=== PATIENT | male | born 1985 | race Caucasian/White ===

== ENCOUNTER 2016-06-20 14:13 | Emergency (ER) | payer MEDICAID, OTHER ==
[2016-06-20] MEDS ORDERED: TETRACAINE HCL 0.5% OPH SOLN 2 ML OS ONE (14:40)
--- NOTE | 2016-06-20 14:41 | ER Document Report ---
ED Medical Screen (RME) - General Chief Complaint: Eye Injury Stated Complaint: EYE PROBLEM Notes: Patient is a 31-year-old male who presents with feeling like a wood splinter is in his left eye. He was drilling he surveillance camera into a piece of wood and noticed a splinter bounced off the inside of his safety glasses and went into his eye. Denies blurry vision, tearing, redness or right eye pain. I have greeted and performed a rapid initial assessment of this patient. A comprehensive ED assessment and evaluation of the patient, analysis of test results and completion of the medical decision making process will be conducted by additional ED providers. TRAVEL OUTSIDE OF THE [place] IN LAST 30 DAYS: No - Related Data Allergies/Adverse Reactions: No Known Allergies Allergy (Verified 09/20/15 03:26) Past Medical History Pulmonary Medical History: Reports: Hx COPD Neurological Medical History: Reports: Hx Migraine Renal/ Medical History: Denies: Hx Peritoneal Dialysis Musculoskeltal Medical History: Reports Hx Musculoskeletal Deformity, Reports Hx Musculoskeletal Trauma Psychiatric Medical History: Reports: Hx Anxiety, Hx Depression - Immunizations Immunizations up to date: Yes Hx Diphtheria, Pertussis, Tetanus Vaccination: Yes Physical Exam - Vital signs Vitals: Temp Pulse Resp BP Pulse Ox 97.4 F 65 16 114/53 L 100 06/20/16 14:18 06/20/16 14:18 06/20/16 14:18 06/20/16 14:18 06/20/16 14:18 Course - Vital Signs Vital signs: Temp Pulse Resp BP Pulse Ox 97.4 F 65 16 114/53 L 100 06/20/16 14:18 06/20/16 14:18 06/20/16 14:18 06/20/16 14:18 06/20/16 14:18
--- NOTE | 2016-06-20 16:00 | ER Document Report ---
HPI - HPI Patient complains to provider of: piece of wood flew in eye Onset: Just prior to arrival Onset/Duration: Sudden Quality of pain: Sharp Pain Level: 5 Context: 31 yo methadone pt non contact lens weared male was drilling into wood and states piece of wood flew into left eye. He states that he could see it in his eye and his eye is irritated. Wears glasses but does not have them for the visual acuity accuracy. No eyeball pain, he states it feels supreficial. Associated Symptoms: None Exacerbated by: Denies Relieved by: Denies Similar symptoms previously: No Recently seen / treated by doctor: No - ROS ROS below otherwise negative: Yes Systems Reviewed and Negative: Yes All other systems reviewed and negative - DERM Skin Color: Normal Past Medical History - General Information source: Patient - Social History Smoking Status: Current Every Day Smoker Frequency of alcohol use: None Drug Abuse: None Lives with: Family Family History: Reviewed & Not Pertinent Patient has suicidal ideation: No Patient has homicidal ideation: No Pulmonary Medical History: Reports: Hx COPD Neurological Medical History: Reports: Hx Migraine Renal/ Medical History: Denies: Hx Peritoneal Dialysis Musculoskeltal Medical History: Reports Hx Musculoskeletal Deformity, Reports Hx Musculoskeletal Trauma Psychiatric Medical History: Reports: Hx Anxiety, Hx Depression Surgical Hx: Negative - Immunizations Immunizations up to date: Yes Hx Diphtheria, Pertussis, Tetanus Vaccination: Yes Vertical Provider Document - CONSTITUTIONAL Agree With Documented VS: Yes - somnolent Exam Limitations: No Limitations General Appearance: No Apparent Distress - INFECTION CONTROL TRAVEL OUTSIDE OF THE [place] IN LAST 30 DAYS: No - HEENT HEENT: Atraumatic, PERRLA. negative: Conjuctival Injection Notes: no fb, no anterior chamber bleed, no fluorescein uptake - NECK Neck: Supple - RESPIRATORY O2 Sat by Pulse Oximetry: 100 - NEURO Level of Consciousness: Awake, Sedated - DERM Integumentary: Warm, Dry, No Rash Course - Re-evaluation Re-evalutation: 06/21/16 21:46 visual acutiy 20/100 both eyes without his glasses - Vital Signs Vital signs: Temp Pulse Resp BP Pulse Ox 97.4 F 65 16 114/53 L 100 06/20/16 14:18 06/20/16 14:18 06/20/16 14:18 06/20/16 14:18 06/20/16 14:18 Discharge - Discharge Clinical Impression: Irritation of left eye Condition: Good Disposition: HOME, SELF-CARE Instructions: Eyedrop Use ([facility]), Ketorolac Tromethamine Eye Drops ([facility]) Additional Instructions: return to er if eye worsens with any swelling, red, drainage. 1 drop of the acular eye drops every 6 hours for eye pain Referrals: TERRENCE ARTEAGA MD [ACTIVE STAFF] - Follow up as needed
[2016-06-20] MEDS ORDERED: KETOROLAC TROMETHAMINE 0.45% 4 DROP/0.4 ML DROPERETTE OS ONE (16:29)
[2016-06-20 17:01] VITALS: BP 104/51
== END 2016-06-20 16:59 | disposition home or self-care (01) ==
LOC: ER 14:13
DX: H57.8 Other specified disorders of eye and adnexa (principal); F17.200 Nicotine dependence, unspecified, uncomplicated; J44.9 Chronic obstructive pulmonary disease, unspecified
CPT/HCPCS: 99283; J3490

== ENCOUNTER 2016-09-26 12:15 | Emergency (ER) | payer SELFPAY ==
[2016-09-26] MEDS ORDERED: MORPHINE SULFATE 10 MG/ML INJ IV ONE (12:25)
[2016-09-26] MEDS ORDERED: NORMAL SALINE 1000 ML 1,000 ML IV PRN (12:25)
[2016-09-26] MEDS ORDERED: ONDANSETRON HCL INJ/PF 4 MG/2 ML SDV IV ONE (12:25)
[2016-09-26] MEDS ORDERED: KETOROLAC TROMETHAMINE INJ/PF 30 MG/1 ML SDV IV ONE (12:27)
--- NOTE | 2016-09-26 12:49 | ER Document Report ---
ED Medical Screen (RME) - General Chief Complaint: Abdominal Pain Stated Complaint: ABDOMINAL PAIN Time Seen by Provider: 09/26/16 12:24 Notes: 31-year-old male who presents with sudden onset of severe left lower quadrant pain. He states that less than 1 hour ago. It is severe and constant. He states he is nauseous but has not vomited. He denies any testicle pain or problems with urination or bowel movements. No fevers. He denies any previous abdominal surgeries. He states that he has no blood in his urine. No fevers. He denies chronic medical conditions. He denies any previous abdominal surgeries. TRAVEL OUTSIDE OF THE [place] IN LAST 30 DAYS: No - Related Data Allergies/Adverse Reactions: No Known Allergies Allergy (Verified 09/20/15 03:26) Past Medical History Pulmonary Medical History: Reports: Hx COPD Neurological Medical History: Reports: Hx Migraine Renal/ Medical History: Denies: Hx Peritoneal Dialysis Musculoskeltal Medical History: Reports Hx Musculoskeletal Deformity, Reports Hx Musculoskeletal Trauma Psychiatric Medical History: Reports: Hx Anxiety, Hx Depression - Immunizations Immunizations up to date: Yes Hx Diphtheria, Pertussis, Tetanus Vaccination: Yes Physical Exam - Vital signs Vitals: Temp Pulse Resp BP Pulse Ox 97.5 F 107 H 22 H 139/97 H 98 09/26/16 12:19 09/26/16 12:19 09/26/16 12:19 09/26/16 12:19 09/26/16 12:19 Course - Vital Signs Vital signs: Temp Pulse Resp BP Pulse Ox 97.5 F 107 H 22 H 139/97 H 98 09/26/16 12:19 09/26/16 12:19 09/26/16 12:19 09/26/16 12:19 09/26/16 12:19
[2016-09-26 13:08] LABS: ABSOLUTE BASOPHILS # (AUTO) 0.1 10^3/uL (0.0-0.2); ABSOLUTE EOSINOPHILS # (AUTO) 0.3 10^3/uL (0.0-0.6); ABSOLUTE LYMPHOCYTES (AUTO) 2.6 10^3/uL (0.5-4.7); ABSOLUTE MONOCYTES (AUTO) 0.6 10^3/uL (0.1-1.4); ABSOLUTE NEUT (AUTO) 2.3 10^3/uL (1.7-8.2); BASOPHILS % (AUTO) 2.1 % (0-2); EOSINOPHILS % (AUTO) 4.7 % (0-6); HEMATOCRIT 39.1 % (37.9-51.0); HGB HCT DIFFERENCE -0.1; LYMPHOCYTES % (AUTO) 44.5 % (13-45); MEAN CORPUSCULAR HEMOGLOBIN 28.6 pg (27.0-33.4); MEAN CORPUSCULAR HGB CONC 33.2 g/dL (32.0-36.0); MEAN CORPUSCULAR VOLUME 86 fl (80-97); MONOCYTES % (AUTO) 9.6 % (3-13); RED BLOOD COUNT 4.54 10^6/uL (4.35-5.55); RED CELL DISTRIBUTION WIDTH 14.4 % (11.5-14.0); SEGMENTED NEUTROPHILS % (AUTO) 39.1 % (42-78); WHITE BLOOD COUNT 5.8 10^3/uL (4.0-10.5)
[2016-09-26 13:17] LABS: APPEARANCE,URINE SLIGHTLY-CLOUDY; BILIRUBIN,URINE NEGATIVE (NEGATIVE); GLUCOSE, URINE NEGATIVE (NEGATIVE); KETONES,URINE NEGATIVE (NEGATIVE); LEUKOCYTE ESTERASE,URINE NEGATIVE (NEGATIVE); NITRITE,URINE NEGATIVE (NEGATIVE); PROTEIN,URINE NEGATIVE (NEGATIVE); URINE SPECIFIC GRAVITY 1.012; UROBILINOGEN,URINE NEGATIVE mg/dL (<2.0)
[2016-09-26 13:32] LABS: ALANINE AMINOTRANSFERASE 111 U/L (21-72); ALBUMIN 4.9 g/dL (3.5-5.0); ALKALINE PHOSPHATASE 71 U/L (38-126); ANION GAP 17 (5-19); ASPARTATE AMINO TRANSFERASE 60 U/L (17-59); BILIRUBIN,DIRECT 0.3 mg/dL (0.0-0.4); BILIRUBIN,TOTAL 0.5 mg/dL (0.2-1.3); BLOOD UREA NITROGEN 23 mg/dL (7-20); CALCIUM 9.8 mg/dL (8.4-10.2); CARBON DIOXIDE 25 mmol/L (22-30); CHLORIDE 100 mmol/L (98-107); CREATININE RESULT 0.89 mg/dL (0.52-1.25); GLUCOSE 82 mg/dL (75-110); POTASSIUM 4.9 mmol/L (3.6-5.0); SODIUM 141.9 mmol/L (137-145); TOTAL PROTEIN 8.3 g/dL (6.3-8.2)
--- NOTE | 2016-09-26 13:44 | RADIOLOGY REPORT (SQ) ---
EXAM DESCRIPTION: CT ABD/PELVIS NO ORAL OR IV COMPLETED DATE/TIME: 09/26/2016 1:12 pm REASON FOR STUDY: left lq pain COMPARISON: July 2010 TECHNIQUE: CT scan of the abdomen and pelvis performed without intravenous or oral contrast. Images reviewed with lung, soft tissue, and bone windows. Reconstructed coronal and sagittal MPR images revi ewed. All images stored on PACS. All CT scanners at this facility use dose modulation, iterative reconstruction, and/or weight based d osing when appropriate to reduce radiation dose to as low as reasonably achievable (ALARA). [facility]: Dose Right [facility]: CareDose [facility]: Dose Right [facility]: Teradose 4D [facility]: Smart MyWebzz RADIATION DOSE: Up-to-date CT equipment and radiation dose reduction techniques were employed. CTDIv ol: 4.8 mGy. DLP: 247 mGy-cm.mGy. LIMITATIONS: None. FINDINGS: LOWER CHEST: No significant findings. No nodules or infiltrates. NON-CONTRASTED LIVER, SPLEEN, ADRENALS: Evaluation limited by lack of IV contrast. No identified sign ificant masses. PANCREAS: No masses. No peripancreatic inflammatory changes. GALLBLADDER: No identified stones by CT criteria. No inflammatory changes to suggest cholecystitis. RIGHT KIDNEY AND URETER: No suspicious masses. Assessment limited by lack of IV contrast. No signif icant calcifications. No hydronephrosis or hydroureter. LEFT KIDNEY AND URETER: No suspicious masses. Assessment limited by lack of IV contrast. No signifi cant calcifications. No hydronephrosis or hydroureter. AORTA AND RETROPERITONEUM: No aneurysm. No retroperitoneal masses or adenopathy. BOWEL AND PERITONEAL CAVITY: No obvious masses or inflammatory changes. No free fluid. There are mul tiple prominent fluid filled small bowel loops without definite evidence for obstruction APPENDIX: Not identified PELVIS, BLADDER, AND ABDOMINAL WALL:No abnormal masses. No free fluid. Bladder normal. BONES: No significant findings. OTHER: No other significant finding. IMPRESSION: NO SIGNIFICANT OR ACUTE PROCESS IN THE ABDOMEN OR PELVIS. TECHNICAL DOCUMENTATION: JOB ID: [id number] Quality ID # [id number]: Final reports with documentation of one or more dose reduction techniques (e.g., Au tomated exposure control, adjustment of the mA and/or kV according to patient size, use of iterative reconstruction technique) 2010 [employer]- All Rights Reserved
--- NOTE | 2016-09-26 14:02 | ER Document Report ---
ED GI/ - General Chief Complaint: Abdominal Pain Stated Complaint: ABDOMINAL PAIN Time Seen by Provider: 09/26/16 12:24 Information source: Patient Notes: 31-year-old male who presents today with the acute onset of some periumbilical and "penis" pain he states nausea without vomiting, fevers, flank pain, penile discharge, testicular pain or swelling. He states the pain is subsided. He denies pain to this region previously. He denies any new sexual partners. He denies any obvious aggravating or relieving factors. TRAVEL OUTSIDE OF THE [place] IN LAST 30 DAYS: No - HPI Patient complains to provider of: Abdominal pain Onset: Other - See above Timing/Duration: Sudden Quality of pain: Achy, Stabbing Severity at maximum: Severe Severity in ED: None Pain Level: Denies Location: Other - See above Sexual history: Active Associated symptoms: Other - See above Exacerbated by: Denies Relieved by: Denies Similar symptoms previously: No Recently seen / treated by doctor: No - Related Data Allergies/Adverse Reactions: No Known Allergies Allergy (Verified 09/20/15 03:26) Past Medical History - General Information source: Patient - Social History Smoking Status: Unknown if Ever Smoked Cigarette use (# per day): No Chew tobacco use (# tins/day): No Smoking Education Provided: No Frequency of alcohol use: None Drug Abuse: None Family History: Reviewed & Not Pertinent Patient has suicidal ideation: No Patient has homicidal ideation: No Pulmonary Medical History: Reports: Hx COPD Neurological Medical History: Reports: Hx Migraine Renal/ Medical History: Denies: Hx Peritoneal Dialysis Musculoskeltal Medical History: Reports Hx Musculoskeletal Deformity, Reports Hx Musculoskeletal Trauma Psychiatric Medical History: Reports: Hx Anxiety, Hx Depression Surgical Hx: Negative - Immunizations Immunizations up to date: Yes Hx Diphtheria, Pertussis, Tetanus Vaccination: Yes Review of Systems - Review of Systems Constitutional: denies: Fever EENT: denies: Eye discharge, Nose discharge Cardiovascular: denies: Chest pain, Palpitations Respiratory: denies: Cough, Short of breath Gastrointestinal: denies: Diarrhea, Vomiting Genitourinary: denies: Dysuria Musculoskeletal: denies: Leg swelling Skin: Other - no hives. denies: Rash Neurological/Psychological: Other - no slurred speech -: Yes All other systems reviewed and negative Physical Exam - Vital signs Vitals: Temp Pulse Resp BP Pulse Ox 97.5 F 107 H 22 H 139/97 H 98 09/26/16 12:19 09/26/16 12:19 09/26/16 12:19 09/26/16 12:19 09/26/16 12:19 Notes: Reviewed vital signs and nursing note as charted by RN. CONSTITUTIONAL: Alert and oriented and responds appropriately to questions. Well -appearing; well-nourished HEAD: Normocephalic; atraumatic EYES: Sclerae non-icteric ENT: Normal nose; no rhinorrhea; moist mucous membranes; pharynx without lesions noted NECK: Supple without meningismus; non-tender; no cervical lymphadenopathy, no masses CARD: Regular rate and rhythm; no murmurs, no clicks, no rubs, no gallops; symmetric distal pulses RESP: Normal chest excursion without splinting or tachypnea; breath sounds clear and equal bilaterally ABD/GI: Normal bowel sounds; non-distended; soft, non-tender currently to deep palpation of all 4 quadrants of the abdomen GI/: Patient has no penile lesions, discharge, testicular pain or swelling, or scrotal erythema BACK: The back appears normal and is non-tender to palpation, there is no CVA tenderness EXT: Normal ROM in all joints; non-tender to palpation; no cyanosis, no effusions, no edema SKIN: Normal color for age and race; warm; dry; good turgor; capillary refill < 2 seconds; no acute lesions noted NEURO: Moves all extremities equally; Motor and sensory function intact PSYCH: The patient's mood and manner are appropriate. Grooming and personal hygiene are appropriate. Course - Re-evaluation Re-evalutation: Given the history and physical examination, stat CT scan of the abdomen and pelvis was ordered in triage. Initial evaluation for possible kidney stone or appendicitis lesion. 09/26/16 14:02 Patient is still without pain. CT scan shows no acute abnormalities. Patient does have some hematuria. Possible acutely passed kidney stone? I have added a urine gonorrhea/chlamydia. 09/26/16 14:36 Speaking with the patient he states he has a history of hepatitis C. This would explain the transaminitis. Patient still denies any and all pain. No tenderness to repeat examination. Patient points to the urine analysis that is in the room and there was a small black stone present. I believe that this is confirmatory. - Vital Signs Vital signs: Temp Pulse Resp BP Pulse Ox 97.5 F 107 H 14 139/97 H 98 09/26/16 12:19 09/26/16 12:19 09/26/16 13:17 09/26/16 12:19 09/26/16 12:19 - Laboratory Result Diagrams: 09/26/16 12:38 09/26/16 12:38 Laboratory results interpreted by me: 09/26/16 09/26/16 09/26/16 12:38 12:38 12:55 Hgb 13.0 L RDW 14.4 H Seg Neutrophils % 39.1 L Basophils % 2.1 H BUN 23 H AST 60 H ALT 111 H Total Protein 8.3 H Urine Blood MODERATE H Discharge - Discharge Clinical Impression: Abdominal pain Qualifiers: Abdominal location: unspecified location Qualified Code(s): R10.9 - Unspecified abdominal pain Hematuria Qualifiers: Hematuria type: unspecified type Qualified Code(s): R31.9 - Hematuria, unspecified Condition: Good Disposition: ADMITTED OBSERVATION Additional Instructions: Come back immediately for any return of pain, fevers, vomiting, inability to urinate, or any other acute problems. Referrals: [facility] [Provider Group] - Follow up as needed
[2016-09-26 15:00] VITALS: BP 124/59
[2016-09-26 16:37] LABS: CHLAM PCR NOT DETECTED (NOT DETECT)
== END 2016-09-26 14:59 | disposition home or self-care (01) ==
LOC: ER 12:15
DX: R10.9 Unspecified abdominal pain (principal); R31.9 Hematuria, unspecified; R10.33 Periumbilical pain; N48.89 Other specified disorders of penis; R11.0 Nausea
CPT/HCPCS: 99285; 96361; 96374; 96375; 36415; 85025; 80053; 81001; 87491; 87591; 74176; J1885; J2270; J2405; J7030

== ENCOUNTER 2016-10-01 18:41 | Emergency (ER) | payer SELFPAY ==
--- NOTE | 2016-10-01 20:58 | ER Document Report ---
HPI - HPI Patient complains to provider of: sore throat, cough, poisen noe Onset: Other - several days Onset/Duration: Gradual Quality of pain: Achy Pain Level: 2 Context: 31-year-old marijuana smoker male complaining of sore throat, cough, chest tightness for 5 days. Fever 101 last night. Also states he needs prednisone for poisen noe that he got from using a stick to open his car window 5 days ago , itchy rash started the next day. No n/v/d. Associated Symptoms: None Exacerbated by: Denies Relieved by: Denies Similar symptoms previously: Yes Recently seen / treated by doctor: No - ROS ROS below otherwise negative: Yes Systems Reviewed and Negative: Yes All other systems reviewed and negative - CARDIOVASCULAR Cardiovascular: DENIES: Chest pain - DERM Skin Color: Normal Past Medical History - General Information source: Patient - Social History Smoking Status: Never Smoker Chew tobacco use (# tins/day): No Frequency of alcohol use: Occasional Drug Abuse: Marijuana Lives with: Family Family History: Reviewed & Not Pertinent Pulmonary Medical History: Reports: Hx COPD Neurological Medical History: Reports: Hx Migraine Renal/ Medical History: Denies: Hx Peritoneal Dialysis Musculoskeltal Medical History: Reports Hx Musculoskeletal Deformity, Reports Hx Musculoskeletal Trauma Psychiatric Medical History: Reports: Hx Anxiety, Hx Depression Surgical Hx: Negative - Immunizations Immunizations up to date: Yes Hx Diphtheria, Pertussis, Tetanus Vaccination: Yes Vertical Provider Document - CONSTITUTIONAL Agree With Documented VS: Yes Exam Limitations: No Limitations - INFECTION CONTROL TRAVEL OUTSIDE OF THE [place] IN LAST 30 DAYS: No - HEENT HEENT: Conjuctival Injection - mild, Pharyngeal Erythema - mild. negative: Tympanic Membrane Red, Tympanic Membrane Bulging - NECK Neck: Supple. negative: Lymphadenopathy-Left, Lymphadenopathy-Right - RESPIRATORY Respiratory: No Respiratory Distress, Rhonchi - coarse on the right. negative: Wheezing O2 Sat by Pulse Oximetry: 96 - CARDIOVASCULAR Cardiovascular: Regular Rate, Regular Rhythm - GI/ABDOMEN Gastrointestinal: Abdomen Soft, Abdomen Non-Tender, No Organomegaly - MUSCULOSKELETAL/EXTREMETIES Musculoskeletal/Extremeties: MAEW, FROM - NEURO Level of Consciousness: Awake, Alert, Appropriate Motor/Sensory: No Motor Deficit, No Sensory Deficit - DERM Integumentary: Warm, Rash - papular red rash arms and legs, discreet lesions, no vesicles, pt is convinced it is poisen noe Course - Re-evaluation Re-evalutation: 10/01/16 21:48 looser cough after nebulizer, states that he can breathe deeper now. 10/01/16 22:02 chest xray is negative per radiologist - Vital Signs Vital signs: Temp Pulse Resp BP Pulse Ox 98.6 F 85 16 120/60 96 10/01/16 18:50 10/01/16 18:50 10/01/16 18:50 10/01/16 18:50 10/01/16 18:50 Discharge - Discharge Clinical Impression: Poison noe, Sore throat Upper respiratory infection Qualifiers: URI type: unspecified viral URI Qualified Code(s): J06.9 - Acute upper respiratory infection, unspecified Condition: Good Disposition: HOME, SELF-CARE Instructions: Acetaminophen, Sore Throat ([facility]), Upper Respiratory Illness ([facility]) , Contact Dermatitis ([facility]), Corticosteroid Medication ([facility]), Inhaled Bronchodilators ([facility]) Additional Instructions: plenty of fluids use the albuterol meter dose inhaler every 3 hours for the cough tylenol for fever to er if worse Please complete the patient satisfaction survey if you get one, and return it.. If you do not receive a survey, then you can go to the [facility] website, [email or web address] and place your comments about your very good care. Thank you very much. It was a pleasure being your medical provider today. Prescriptions: Prednisone [Deltasone 10 mg Tablet] 10 mg PO ASDIR PRN #15 tablet PRN Reason: Forms: Return to Work Referrals: ELIZABETH ANDERSON MD [Primary Care Provider] - Follow up as needed
[2016-10-01] MEDS ORDERED: ACETAMINOPHEN 325 MG TABLET PO ONE (21:04)
[2016-10-01] MEDS ORDERED: IBUPROFEN 800 MG TABLET PO ONE (21:04)
[2016-10-01] MEDS ORDERED: ALBUTEROL SULFATE 0.083% NEB 2.5 MG/3 ML AMPUL NEB ONE (21:15)
[2016-10-01] MEDS ORDERED: PREDNISONE 20 MG TABLET PO ONE (21:15)
[2016-10-01] MEDS ORDERED: ALBUTEROL SULFATE HFA (90 MCG/PUFF) 200 PUFF/8.5 GM MDI IH ONE (21:48)
[2016-10-01] MEDS ORDERED: ALBUTEROL SULFATE HFA (90 MCG/PUFF) 8 GM MDI (1 MDI/ER DISP) IH PRN (21:49)
--- NOTE | 2016-10-01 22:05 | RADIOLOGY REPORT (SQ) ---
EXAM DESCRIPTION: CHEST PA/LAT COMPLETED DATE/TIME: 10/01/2016 9:59 pm REASON FOR STUDY: cough COMPARISON: 11/15/2015 EXAM PARAMETERS: NUMBER OF VIEWS: two views TECHNIQUE: Digital Frontal and Lateral radiographic views of the chest acquired. RADIATION DOSE: NA LIMITATIONS: none FINDINGS: LUNGS AND PLEURA: No opacities, masses or pneumothorax. No pleural effusion. MEDIASTINUM AND HILAR STRUCTURES: No masses or contour abnormalities. HEART AND VASCULAR STRUCTURES: Heart normal size. No evidence for failure. BONES: No acute findings. HARDWARE: None in the chest. OTHER: No other significant finding. IMPRESSION: NO SIGNIFICANT RADIOGRAPHIC FINDING IN THE CHEST. TECHNICAL DOCUMENTATION: JOB ID: [id number] [facility]- All Rights Reserved
[2016-10-01 22:17] VITALS: BP 111/72
== END 2016-10-01 22:16 | disposition home or self-care (01) ==
LOC: ER 18:41
DX: J02.9 Acute pharyngitis, unspecified (principal); J06.9 Acute upper respiratory infection, unspecified; B97.89 Other viral agents as the cause of diseases classified elsewhere; L23.7 Allergic contact dermatitis due to plants, except food; J44.9 Chronic obstructive pulmonary disease, unspecified; R05 Cough; R07.89 Other chest pain
CPT/HCPCS: 94640; 99283; 71020; J7512; J3490

== ENCOUNTER 2016-12-03 12:39 | Emergency (ER) | payer MEDICAID ==
[2016-12-03] MEDS ORDERED: NORMAL SALINE 1000 ML 1,000 ML IV ONE (12:45)
[2016-12-03 13:13] LABS: ABSOLUTE BASOPHILS # (AUTO) 0.1 10^3/uL (0.0-0.2); ABSOLUTE EOSINOPHILS # (AUTO) 0.3 10^3/uL (0.0-0.6); ABSOLUTE MONOCYTES (AUTO) 0.4 10^3/uL (0.1-1.4); ABSOLUTE NEUT (AUTO) 2.7 10^3/uL (1.7-8.2); BASOPHILS % (AUTO) 1.1 % (0-2); EOSINOPHILS % (AUTO) 5.4 % (0-6); HEMATOCRIT 37.9 % (37.9-51.0); HEMOGLOBIN 13.2 g/dL (13.5-17.0); HGB HCT DIFFERENCE 1.7; LYMPHOCYTES % (AUTO) 36.5 % (13-45); MEAN CORPUSCULAR HEMOGLOBIN 29.5 pg (27.0-33.4); MEAN CORPUSCULAR HGB CONC 34.9 g/dL (32.0-36.0); MEAN CORPUSCULAR VOLUME 85 fl (80-97); RED BLOOD COUNT 4.47 10^6/uL (4.35-5.55); RED CELL DISTRIBUTION WIDTH 14.2 % (11.5-14.0); WHITE BLOOD COUNT 5.4 10^3/uL (4.0-10.5)
[2016-12-03] MEDS ORDERED: DIPH/PERTUSS(ACELL)/TETANUS VAC/PF 0.5 ML SYR (>=10YO) IM ONE (13:19)
[2016-12-03 13:21] LABS: PROTHROMBIN TIME 13.2 SEC (11.4-15.4)
[2016-12-03 13:22] LABS: FIBRINOGEN 275 mg/dL (209-497); PARTIAL THROMBOPLASTIN TIME 30.2 SEC (23.5-35.8)
--- NOTE | 2016-12-03 13:23 | ER Document Report ---
ED Snake Bite - General Chief Complaint: Snake Bite Stated Complaint: POSSIBLE SNAKE BITE Time Seen by Provider: 12/03/16 12:45 Mode of Arrival: Ambulatory Information source: Patient TRAVEL OUTSIDE OF THE [place] IN LAST 30 DAYS: No - HPI Patient complains to provider of: snake bite right hand Onset: Just prior to arrival Where: Outdoors Location of injury: RUE Quality of pain: Burning, Fullness, Pressure Severity: Bitten, Envenomation Pain Level: 4 Lost Consciousness: No Remembers: Injury, Coming to hospital Associated Symptoms: Nausea/vomiting Notes: Patient is a 31-year-old male presenting to the emergency room today after snake bite to right hand, he was picking up a pile leaves when he felt something sting him in the right hand, developing intense burning pressure pain to the palmar surface of the right hand over the hypo-thenar eminence, he reports the intense pain lasted approximately 10 minutes and has subsided slightly, no history of snakebite previously, last tetanus shot is unknown, patient did have some nausea and vomiting prior to my evaluation, patient reports that he takes methadone secondary to a history of substance abuse in the past and has declined any narcotic pain medication today - Related Data Allergies/Adverse Reactions: No Known Allergies Allergy (Verified 10/01/16 18:48) Home Medications: Current Home Medications Methadone HCl [Dolophine 10 Mg Tablet] 60 mg PO DAILY 12/03/16 [History] Past Medical History - General Information source: Patient - Social History Smoking Status: Never Smoker Family History: Reviewed & Not Pertinent Pulmonary Medical History: Reports: Hx COPD Neurological Medical History: Reports: Hx Migraine Renal/ Medical History: Denies: Hx Peritoneal Dialysis Musculoskeltal Medical History: Reports Hx Musculoskeletal Deformity, Reports Hx Musculoskeletal Trauma Psychiatric Medical History: Reports: Hx Anxiety, Hx Depression Surgical Hx: Negative - Immunizations Immunizations up to date: Yes Hx Diphtheria, Pertussis, Tetanus Vaccination: Yes Review of Systems - Review of Systems Constitutional: No symptoms reported EENT: No symptoms reported Cardiovascular: No symptoms reported Respiratory: No symptoms reported Gastrointestinal: Nausea, Vomiting Genitourinary: No symptoms reported Male Genitourinary: No symptoms reported Musculoskeletal: See HPI Skin: See HPI Hematologic/Lymphatic: No symptoms reported Neurological/Psychological: No symptoms reported -: Yes All other systems reviewed and negative Physical Exam - Vital signs Vitals: Resp BP 15 112/72 12/03/16 13:02 12/03/16 13:02 Interpretation: Normal - General General appearance: Appears well, Alert - HEENT Head: Normocephalic, Atraumatic Eyes: Normal Pupils: PERRL - Respiratory Respiratory status: No respiratory distress Chest status: Nontender Breath sounds: Normal Chest palpation: Normal - Cardiovascular Rhythm: Regular Heart sounds: Normal auscultation Murmur: No - Abdominal Inspection: Normal Distension: No distension Bowel sounds: Normal Tenderness: Nontender Organomegaly: No organomegaly - Back Back: Normal, Nontender - Extremities General lower extremity: Normal inspection, Nontender, Normal color, Normal ROM , Normal temperature, Normal weight bearing. No: Caitlyn's sign Hand: Tender - Tenderness with erythema and swelling to the hyperthenar eminence of the right hand, mainly on the palmar surface with a central area with a small puncture wound and small amount of ecchymosis, distal sensation and motor is intact with 2+ radial pulses and brisk capillary refill - Neurological Neuro grossly intact: Yes Cognition: Normal Orientation: AAOx4 [place] Coma Scale Eye Opening: Spontaneous [place] Coma Scale Verbal: Oriented [place] Coma Scale Motor: Obeys Commands [place] Coma Scale Total: 15 Speech: Normal Motor strength normal: LUE, RUE, LLE, RLE Sensory: Normal - Psychological Associated symptoms: Normal affect, Normal mood - Skin Skin Temperature: Warm Skin Moisture: Dry Skin Color: Normal Course - Re-evaluation Re-evalutation: 12/03/16 13:58 Patient was seen and evaluated by Dr. Núeñz, surgeon, who agrees that patient does not appear to require CroFab treatment at this point in time, we will continue to monitor patient in the emergency room to ensure that symptoms do not worsen and pain is controlled, patient is in agreement with this plan - Vital Signs Vital signs: Temp Pulse Resp BP Pulse Ox 11 L 102/55 L 99 12/03/16 15:23 12/03/16 15:23 12/03/16 15:23 - Laboratory Result Diagrams: 12/03/16 12:55 12/03/16 12:55 Laboratory results interpreted by me: 12/03/16 12/03/16 12:55 12:55 Hgb 13.2 L RDW 14.2 H Glucose 120 H - Consults Dr Núñez Time consulted: 13:23 Reason for consultation: 12/03/16 13:23 snake bite Consulted provider: will come to ER Discharge - Discharge Clinical Impression: Snake bite Qualifiers: Encounter type: initial encounter Qualified Code(s): W59.11XA - Bitten by nonvenomous snake, initial encounter Condition: Stable Disposition: HOME, SELF-CARE Instructions: Snakebites ([facility]) Additional Instructions: Follow up with your primary care provider in one to 2 days. Return to the emergency room immediately if symptoms worsen or any additional concerns. Referrals: ELIZABETH ANDERSON MD [Primary Care Provider] - Follow up as needed EVANS NÚÑEZ MD [ACTIVE STAFF] - Follow up as needed
[2016-12-03 13:32] LABS: BLOOD UREA NITROGEN 19 mg/dL (7-20); CALCIUM 10.2 mg/dL (8.4-10.2); CHLORIDE 102 mmol/L (98-107); CREATININE RESULT 0.97 mg/dL (0.52-1.25); GLUCOSE 120 mg/dL (75-110); POTASSIUM 4.6 mmol/L (3.6-5.0)
[2016-12-03 13:33] LABS: ANION GAP 14 (5-19); CARBON DIOXIDE 26 mmol/L (22-30); CREATINE KINASE 110 U/L (55-170); SODIUM 142.4 mmol/L (137-145)
[2016-12-03 13:39] LABS: D-DIMER < 0.27 ug/mL (0.00-0.50)
[2016-12-03] MEDS ORDERED: ONDANSETRON HCL INJ/PF 4 MG/2 ML SDV IV ONE (14:27)
[2016-12-03] MEDS ORDERED: MORPHINE SULFATE 10 MG/ML INJ IV ONE (14:54)
--- NOTE | 2016-12-03 15:29 | PDOC CONSULTATION ---
Consultation Consult Date: 12/03/16 Attending physician:: plu Consult reason:: Snake bite to the right hand History of Present Illness Admission Date/PCP: ELIZABETH ANDERSON MD History of Present Illness: BEN LEON is a 31 year old male Brought by ground rescued [facility] after undergoing a snake bite to the right hand. The patient was cleaning up a pile lesion was bit by a copperhead which he has taken pictures of. He immediately developed pain in his right hypo-thenar eminence. He was brought by ground rescue, where he evaluated and found to have local envenomation. Anti-venom was not prescribed. Surgery was consulted Past Medical History Pulmonary Medical History: Reports: Chronic Obstructive Pulmonary Disease (COPD) Neurological Medical History: Reports: Migraine Psychiatric Medical History: Reports: Depression Social History Smoking Status: Never Smoker Drugs: Methadone Family History Family History: Reviewed & Not Pertinent Parental Family History Reviewed: Yes Children Family History Reviewed: Yes Sibling(s) Family History Reviewed.: Yes Medication/Allergy Home Medications: Methadone HCl [Dolophine 10 Mg Tablet] 60 mg PO DAILY 12/03/16 Allergies/Adverse Reactions: No Known Allergies Allergy (Verified 10/01/16 18:48) Review of Systems Constitutional: ABSENT: chills, fever(s), headache(s), weight gain, weight loss Eyes: ABSENT: visual disturbances Ears: ABSENT: hearing changes Cardiovascular: ABSENT: chest pain, dyspnea on exertion, edema, orthropnea, palpitations Respiratory: ABSENT: cough, hemoptysis Gastrointestinal: ABSENT: abdominal pain, constipation, diarrhea, hematemesis, hematochezia, nausea, vomiting Psychiatric: ABSENT: anxiety, depression, homidical ideation, suicidal ideation Endocrine: ABSENT: cold intolerance, heat intolerance, polydipsia, polyuria Physical Exam Vital Signs: Temp Pulse Resp BP Pulse Ox 97 12/03/16 13:09 Intake & Output 12/02/16 12/03/16 12/04/16 06:59 06:59 06:59 Weight 58.967 kg General appearance: PRESENT: mild distress Head exam: PRESENT: normocephalic Eye exam: PRESENT: EOMI Neck exam: PRESENT: full ROM Cardiovascular exam: PRESENT: RRR Pulses: PRESENT: normal carotid pulses, normal radial pulses Rectal exam: PRESENT: deferred Musculoskeletal exam: PRESENT: other - Patient is right-hand dominant. Right hand is examined. Over the hyperthenar eminence, palm side, there is moderate ecchymosis discoloration and subcutaneous tissue. There is no nino wound, cellulitis, or extension beyond the local area. Range of motion of the arm wrist and fingers are intact with radial ulnar and median nerves intact Results Laboratory Results: 12/03/16 12:55 12/03/16 12:55 12/03/16 12/03/16 12:55 12:55 WBC 5.4 RBC 4.47 Hgb 13.2 L Hct 37.9 MCV 85 MCH 29.5 MCHC 34.9 RDW 14.2 H Plt Count 396 Seg Neutrophils % 50.0 Lymphocytes % 36.5 Monocytes % 7.0 Eosinophils % 5.4 Basophils % 1.1 Absolute Neutrophils 2.7 Absolute Lymphocytes 2.0 Absolute Monocytes 0.4 Absolute Eosinophils 0.3 Absolute Basophils 0.1 Sodium 142.4 Potassium 4.6 Chloride 102 Carbon Dioxide 26 Anion Gap 14 BUN 19 Creatinine 0.97 Est GFR ( Amer) > 60 Est GFR (Non-Af Amer) > 60 Glucose 120 H Calcium 10.2 12/03/16 12:55 Creatine Kinase 110 Assessment & Plan - Diagnosis (1) Snake bite Qualifiers: Encounter type: initial encounter Qualified Code(s): W59.11XA - Bitten by nonvenomous snake, initial encounter Plan: The patient sustained snakebite injury to the right thenar eminence in a right dominant hand individual. The degree of envenomation is felt to be local not regional Recommendations: 1. Agree with plans to observe patient, and withhold anti-venom therapy 2. No indication for admission to the hospital 3. Patient counseled on keeping his hand in a neutral position, minimizing activities for the next 48 hours. If his clinical condition deteriorates he is to return to the emergency department for reevaluation - Time Time Spent: 30 to 50 Minutes Critical Time spent with patient: Less than 15 minutes
[2016-12-03 16:33] LABS: APPEARANCE,URINE CLEAR; BILIRUBIN,URINE NEGATIVE (NEGATIVE); GLUCOSE, URINE NEGATIVE (NEGATIVE); KETONES,URINE NEGATIVE (NEGATIVE); LEUKOCYTE ESTERASE,URINE NEGATIVE (NEGATIVE); NITRITE,URINE NEGATIVE (NEGATIVE); PROTEIN,URINE NEGATIVE (NEGATIVE); URINE SPECIFIC GRAVITY 1.015; UROBILINOGEN,URINE NEGATIVE mg/dL (<2.0)
[2016-12-03 18:41] LABS: ABSOLUTE BASOPHILS # (AUTO) 0.1 10^3/uL (0.0-0.2); ABSOLUTE EOSINOPHILS # (AUTO) 0.3 10^3/uL (0.0-0.6); ABSOLUTE LYMPHOCYTES (AUTO) 2.2 10^3/uL (0.5-4.7); ABSOLUTE MONOCYTES (AUTO) 0.6 10^3/uL (0.1-1.4); ABSOLUTE NEUT (AUTO) 1.9 10^3/uL (1.7-8.2); EOSINOPHILS % (AUTO) 6.4 % (0-6); HEMATOCRIT 32.7 % (37.9-51.0); HEMOGLOBIN 11.4 g/dL (13.5-17.0); HGB HCT DIFFERENCE 1.5; LYMPHOCYTES % (AUTO) 42.7 % (13-45); MEAN CORPUSCULAR HEMOGLOBIN 29.7 pg (27.0-33.4); MEAN CORPUSCULAR HGB CONC 34.8 g/dL (32.0-36.0); MEAN CORPUSCULAR VOLUME 85 fl (80-97); MONOCYTES % (AUTO) 11.7 % (3-13); RED BLOOD COUNT 3.83 10^6/uL (4.35-5.55); RED CELL DISTRIBUTION WIDTH 14.1 % (11.5-14.0); SEGMENTED NEUTROPHILS % (AUTO) 38.2 % (42-78); WHITE BLOOD COUNT 5.1 10^3/uL (4.0-10.5)
[2016-12-03 18:47] LABS: PARTIAL THROMBOPLASTIN TIME 32.9 SEC (23.5-35.8); PROTHROMBIN TIME 14.3 SEC (11.4-15.4)
[2016-12-03 18:48] LABS: FIBRINOGEN 218 mg/dL (209-497)
[2016-12-03 19:04] LABS: ANION GAP 6 (5-19); BLOOD UREA NITROGEN 15 mg/dL (7-20); CARBON DIOXIDE 29 mmol/L (22-30); CHLORIDE 104 mmol/L (98-107); CREATINE KINASE 75 U/L (55-170); CREATININE RESULT 0.81 mg/dL (0.52-1.25); GLUCOSE 90 mg/dL (75-110); POTASSIUM 4.6 mmol/L (3.6-5.0); SODIUM 139.4 mmol/L (137-145)
[2016-12-03 20:18] VITALS: BP 99/62
== END 2016-12-03 20:41 | disposition home or self-care (01) ==
LOC: ER 12:39
DX: S61.451A Open bite of right hand, initial encounter (principal); R11.2 Nausea with vomiting, unspecified; Z79.899 Other long term (current) drug therapy; W59.11XA Bitten by nonvenomous snake, initial encounter
CPT/HCPCS: 99284; 96361; 90471; 96374; 96375; 36415; 82550; 85025; 85384; 85362; 85610; 85730; 83874; 80048; 81001; 85379; 90715; J2270; J2405; J7030

== ENCOUNTER 2017-03-24 08:52 | Emergency (ER) | payer SELFPAY ==
[2017-03-24 08:58] VITALS: BP 116/72
[2017-03-24] MEDS ORDERED: PSEUDOEPHEDRINE HCL 30 MG TABLET PO ONE (09:31)
[2017-03-24] MEDS ORDERED: FLUTICASONE NASAL SPRAY 50 MCG/SPRY 120 SPRAY/16 GM NASL ONE (09:31)
[2017-03-24] MEDS ORDERED: PREDNISONE 20 MG TABLET PO ONE (09:31)
[2017-03-24] MEDS ORDERED: GUAIFENESIN 600 MG TABLET.SA PO ONE (09:31)
[2017-03-24] MEDS ORDERED: LORATADINE 10 MG TABLET PO ONE (09:31)
--- NOTE | 2017-03-24 09:36 | ER Document Report ---
ED Flu Like - General Chief Complaint: Flu Symptoms Stated Complaint: CONGESTION Time Seen by Provider: 03/24/17 09:21 Mode of Arrival: Ambulatory Information source: Patient Notes: 32-year-old male presents to ED for cough cold congestion sore throat for 6 days. He states he is just feeling weak and tired and no appetite. He also developed a rash while he was in the emergency room he states he knows he was out in the [place] yesterday and he would like a little bit of prednisone if he can get it please. Patient respirations are even and unlabored speaks with full sentences alert and oriented walks with a steady gait. Also complains of a nondescript body rash TRAVEL OUTSIDE OF THE [place] IN LAST 30 DAYS: No - HPI Onset: Other - Cough and cold symptoms for 6 days Timing/Duration: Persistent Quality of pain: Achy Severity: Moderate Pain Level: 3 CO exposure: No Associated symptoms: Body/muscle aches, Nonproductive cough, Rhinnorhea, Sinus pain/drainage, Other - Rash Similar symptoms previously: Yes Recently seen / treated by doctor: No - Related Data Allergies/Adverse Reactions: No Known Allergies Allergy (Verified 03/24/17 08:55) Past Medical History - General Information source: Patient - Social History Smoking Status: Former Smoker Cigarette use (# per day): No Chew tobacco use (# tins/day): No Smoking Education Provided: No Frequency of alcohol use: Social Drug Abuse: Marijuana Occupation: [employer]er Lives with: Family Family History: Arthritis, DM, Thyroid Disfunction Patient has suicidal ideation: No Patient has homicidal ideation: No - Past Medical History Cardiac Medical History: Reports: None Pulmonary Medical History: Reports: None EENT Medical History: Reports: None Neurological Medical History: Reports: Hx Migraine Endocrine Medical History: Reports: None Renal/ Medical History: Reports: None Malignancy Medical History: Reports None GI Medical History: Reports: None Musculoskeltal Medical History: Reports Hx Musculoskeletal Deformity, Reports Hx Musculoskeletal Trauma Skin Medical History: Reports None Psychiatric Medical History: Reports: Hx Anxiety, Hx Depression Traumatic Medical History: Reports: Hx Fractures - Leg Infectious Medical History: Reports: None Surgical Hx: Negative Past Surgical History: Reports: None - Immunizations Immunizations up to date: Yes Hx Diphtheria, Pertussis, Tetanus Vaccination: Yes Review of Systems - Review of Systems Constitutional: Recent illness EENT: Nose discharge, Sinus discharge Cardiovascular: No symptoms reported Respiratory: Cough Gastrointestinal: No symptoms reported Genitourinary: No symptoms reported Male Genitourinary: No symptoms reported Musculoskeletal: No symptoms reported Skin: Rash - Arms Hematologic/Lymphatic: No symptoms reported Neurological/Psychological: No symptoms reported Physical Exam - Vital signs Vitals: Temp Pulse Resp BP Pulse Ox 98.1 F 70 18 116/72 100 03/24/17 08:56 03/24/17 08:56 03/24/17 08:56 03/24/17 08:56 03/24/17 08:56 Interpretation: Normal - General General appearance: Appears well, Alert - HEENT Head: Normocephalic, Atraumatic Eyes: Normal Pupils: PERRL Ears: Normal External canal: Normal Tympanic membrane: Normal Nasal: Purulent discharge, Swelling Mouth/Lips: Normal Mucous membranes: Normal Pharynx: Post nasal drainage Neck: Normal - Respiratory Respiratory status: No respiratory distress Chest status: Nontender Breath sounds: Nonproductive cough Chest palpation: Normal - Cardiovascular Rhythm: Regular Heart sounds: Normal auscultation Murmur: No - Abdominal Inspection: Normal Distension: No distension Bowel sounds: Normal Tenderness: Nontender Organomegaly: No organomegaly - Back Back: Normal, Nontender - Extremities General upper extremity: Normal inspection, Nontender, Normal color, Normal ROM , Normal temperature General lower extremity: Normal inspection, Nontender, Normal color, Normal ROM , Normal temperature, Normal weight bearing. No: Caitlyn's sign - Neurological Neuro grossly intact: Yes Cognition: Normal Orientation: AAOx4 [place] Coma Scale Eye Opening: Spontaneous [place] Coma Scale Verbal: Oriented [place] Coma Scale Motor: Obeys Commands Monae Coma Scale Total: 15 Speech: Normal Motor strength normal: LUE, RUE, LLE, RLE Sensory: Normal - Psychological Associated symptoms: Normal affect, Normal mood - Skin Skin Temperature: Warm Skin Moisture: Dry Skin Color: Normal Skin irregularity: Rash Location of irregularity: Extremities Character of irregularity: Maculopapular Course - Re-evaluation Re-evalutation: 03/24/17 20:10 She was treated with Claritin and Sudafed Mucinex Flonase and prednisone for his upper respiratory infection and his rash. Patient to follow-up with his primary doctor. Patient instructed he could get all the medications besides the prednisone [id number]. - Vital Signs Vital signs: Temp Pulse Resp BP Pulse Ox 98.1 F 70 18 116/72 100 03/24/17 08:56 03/24/17 08:56 03/24/17 08:56 03/24/17 08:56 03/24/17 08:56 Discharge - Discharge Clinical Impression: Rash and nonspecific skin eruption URI (upper respiratory infection) Qualifiers: URI type: unspecified URI Qualified Code(s): J06.9 - Acute upper respiratory infection, unspecified Condition: Stable Disposition: HOME, SELF-CARE Instructions: Family Physicians / Practices Additional Instructions: UPPER RESPIRATORY ILLNESS: You have a viral infection of the respiratory passages -- a "cold." This common infection causes nasal congestion, drainage, and often sore throat and cough. It is highly contagious. The disease usually lasts about 10 to 14 days. There is no "cure" for the viral infection -- it must run its course. If there is a complication, such as bacterial infection in the nose, sinuses, middle ear, or bronchial tubes, antibiotics may be required. The antibiotics won't affect the virus. Drink plenty of fluids. A humidifier may help. An expectorant medication or decongestant may make you more comfortable. Use acetaminophen or ibuprofen for fever or aches. See the doctor if fever persists over two days, if there is any significant worsening of your symptoms, or if you simply fail to improve as expected. You were given Claritin 10 mg, Sudafed 30 mg, Mucinex 600 mg, and Flonase 2 sprays each nostril, and prednisone 40 mg p.o. These were given for your cough and cold symptoms and for your rash to your arms. All of the medications except for the prednisone are [id number] you will need to ask the pharmacist for the Sudafed. DECONGESTANT MEDICATION: A decongestant medicine has been suggested. Often this medicine is combined in the same tablet with an antihistamine or expectorant. This type of medicine is helpful in treating a bad cold or sinus condition, as well as in treatment of the nasal congestion of hay fever. It is not of much benefit for lung infections. Decongestant medicines are related to stimulants. They can cause an increase in blood pressure and heart rate. Persons with heart disease and high blood pressure should not take decongestants without discussing this with the physician. If you develop palpitations, chest pain, headache, or tremors, stop the medicine and consult your physician. COUGH-SUPPRESSANT & EXPECTORANT MEDICATION: You are to use a cough medication as needed for relief of symptoms. This medicine is a combination of an expectorant (to make the mucous thinner and more easily "coughed up") and a cough suppressant (to reduce the frequency of coughing). The cough-suppressant medicine is related to narcotics. You may experience mild nausea and sleepiness. Some patients who are very sensitive to narcotics may have stomach pain from this medicine. Taking the medicine with food reduces these side effects. Do not drive or work with machinery until you know how this medicine affects you. The expectorant should have no side effects. Iodine-containing expectorants (such as organidin) should not be taken by persons with active thyroid disease unless approved by your doctor. Call the doctor if you develop shortness of breath, hives, rash, itching, lightheadedness, or severe nausea and vomiting. STEROID MEDICATION: You have been given an injection of or oral medicine of the cortisone/ steroid class. This medication is used to control inflammation or allergy. Josh t is usually only given for a short period of time, until the acute process subsides. There are usually no side effects from short-term use of cortisone-like medications. Some persons feel an increased sense of well-being and are not sleepy at bedtime. Long-term use of cortisone medications is best avoided, unless required for a severe condition. If your condition does not remit, or relapses after the course of corticosteroid medication, you should consult your physician. USE OF ACETAMINOPHEN (Tylenol): Acetaminophen may be taken for pain relief or fever control. It's much safer than aspirin, offering a wider range of "safe" dosages. It is safe during . Some brand names are Tylenol, Panadol, Datril, Anacin 3, Tempra, and Liquiprin. Acetaminophen can be repeated every four hours. The following are maximum recommended dosages: >89 pounds or adults 650 mg to 900 mg Acetaminophen can be repeated every four hours. Maximum dose not to exceed 4000 mg a day. SMOKING: If you smoke, you should stop smoking. The tar and chemicals in cigarette smoke are harmful. Smoking has been shown to cause: emphysema chronic bronchitis lung cancer mouth and throat cancer stomach and pancreas cancer premature aging defects In addition, smoking increases ear and lung infections in children of smokers. FOLLOW-UP CARE: If you have been referred to a physician for follow-up care, call the physician s office for an appointment as you were instructed or within the next two days. If you experience worsening or a significant change in your symptoms, notify the physician immediately or return to the Emergency Department at any time for re-evaluation. Forms: Smoking Cessation Education, Return to Work
== END 2017-03-24 09:57 | disposition home or self-care (01) ==
LOC: ER 08:52
DX: J06.9 Acute upper respiratory infection, unspecified (principal); R21 Rash and other nonspecific skin eruption
CPT/HCPCS: 99283; J7512

== ENCOUNTER 2017-04-14 13:11 | Emergency (ER) | payer SELFPAY ==
[2017-04-14 13:31] VITALS: BP 139/83
--- NOTE | 2017-04-14 13:57 | ER Document Report ---
HPI - HPI Pain Level: 3 Notes: Patient is a 32-year-old male who presents the ED complaining of sensation of foreign body to his left lower medial eye 1 day. Patient states he thought he could start feeling a sensation of foreign body last evening when he was in bed. Patient does work as a welder and fitter and has had things in his eyes in the past. Patient has not had any discharge. Patient states that when he blinks sometimes he can feel it. Patient states he was trying to fix his issue with a Q-tip as well with no relief. He has not had any other recent illness. Patient states that he has not had any changes in his vision. Denies any headache, fever, head injury, neck pain, changes in vision/speech/mentation/ hearing, URI, sore throat, chest pain, palpitations, syncope, cough, shortness of breath, wheeze, dyspnea, abdominal pain, nausea/vomiting/diarrhea, urinary retention, dysuria, hematuria, or rash. - ROS Systems Reviewed and Negative: Yes All other systems reviewed and negative Past Medical History - Social History Smoking Status: Never Smoker Family History: Arthritis, DM, Thyroid Disfunction Pulmonary Medical History: Reports: Hx COPD Neurological Medical History: Reports: Hx Migraine Renal/ Medical History: Denies: Hx Peritoneal Dialysis Musculoskeltal Medical History: Reports Hx Musculoskeletal Deformity, Reports Hx Musculoskeletal Trauma Psychiatric Medical History: Reports: Hx Anxiety, Hx Depression Traumatic Medical History: Reports: Hx Fractures - Leg - Immunizations Immunizations up to date: Yes Hx Diphtheria, Pertussis, Tetanus Vaccination: Yes Vertical Provider Document - CONSTITUTIONAL Agree With Documented VS: Yes Notes: PHYSICAL EXAMINATION: GENERAL: Well-appearing, well-nourished and in no acute distress. A&Ox4 HEAD: Atraumatic, normocephalic. EYES: Pupils equal round and reactive to light, extraocular movements intact, sclera anicteric, conjunctiva left shows very mild episcleritis b/l w/o discharge or matting. Non-tender to palp of the globe and eye itself. No surrounding erythema or swelling noted. Visual acuity 20/25 b/l and in each eye (performed by myself at bedside with my own eye chart). Wood's lamp/flourescein: No abrasion, laceration, ulceration, or arabella sign noted. No obvious foreign body appreciated. Lid was everted/wiped as well. Eye flushed. ENT: EAC clear b/l. TM's intact b/l without erythema, fluid, or perforation. Nares patent and without discharge. oropharynx clear without exudates. No tonsilar hypertrophy or erythema. Moist mucous membranes. No sinus tenderness. Uvula midline. No palatine shift. No airway compromise. No drooling or hoarseness. NECK: Normal range of motion, supple without lymphadenopathy. No rigidity/ meningismus. LUNGS: Breath sounds clear to auscultation bilaterally and equal. No wheezes rales or rhonchi. HEART: Regular rate and rhythm without murmurs, rubs, gallops. Musculoskeletal: Ext b/l: FROM to passive/active. Strength 5+/5. Extremities: No cyanosis, clubbing, or edema b/l. Peripheral pulses 2+. Capillary refill less than 3 seconds. NEUROLOGICAL: Cranial nerves grossly intact. Normal speech, normal gait. Normal sensory, motor exams PSYCH: Normal mood, normal affect. SKIN: Warm, Dry, normal turgor, no rashes or lesions noted. - INFECTION CONTROL TRAVEL OUTSIDE OF THE [place] IN LAST 30 DAYS: No - RESPIRATORY O2 Sat by Pulse Oximetry: 98 Course - Re-evaluation Re-evalutation: 04/14/17 13:55 Patient is an afebrile, well-hydrated, 32-year-old male who presents the ED with sensation of foreign body to his left eye. Vitals are stable. PE is otherwise unremarkable. I suspect that he has a mild episcleritis to the medial left eye at this time. I exam with fluorescein staining was unremarkable for any acute pathology. The tetracaine did resolve his symptoms during use. Low suspicion for any retained corneal or lid foreign body, deep space infection including orbital cellulitis/abscess, acute glaucoma, penetrating globe injury, retinal detachment, meningitis, sepsis, fracture, compartment syndrome. I will send home with a prescription for Polytrim to use as directed. Conservative measures otherwise for symptoms with proper handwashing. Recheck with your PCM in 3-5 days. Schedule a f/u with Ophthalmology this week. Return to the ED with any worsening/concerning symptoms otherwise as reviewed in discharge. Patient is in agreement. - Vital Signs Vital signs: Temp Pulse Resp BP Pulse Ox 97.9 F 98 12 139/83 H 98 04/14/17 13:30 04/14/17 13:30 04/14/17 13:30 04/14/17 13:30 04/14/17 13:30 Discharge - Discharge Clinical Impression: Sensation of foreign body in eye, Episcleritis of left eye Condition: Stable Disposition: HOME, SELF-CARE Instructions: Eyedrop Use ([facility]) Additional Instructions: keep eyes clean Avoid scratching/touching eyes Wash hands regularly Use eye drops as directed Maintain adequate fluid intake tylenol/ibuprofen as needed over the counter cold medication as needed for symptoms F/u: with your PCM in 3-5 days for a recheck Call ophthalmology tomorrow to schedule an appointment for further evaluation and management Return to the ED with any worsening symptoms and/or development of fever, headache, changes in vision, eye pain, worsening eye redness, redness around the eyes, purulent discharge, sore throat, facial swelling, neck pain/stiffness , chest pain, palpitations, syncope, shortness of breath, trouble breathing, abdominal pain, n/v/d, blood in stool/urine, dysuria, or other worsening symptoms that are concerning to you. Prescriptions: Polymyxin B Sulf/Trimethoprim [Polytrim Eye Drops] 1 drop OD Q3H #10 ml Forms: Elevated Blood Pressure Referrals: LEOPOLDO VILLARREAL MD [ACTIVE STAFF] - Follow up as needed
== END 2017-04-14 14:00 | disposition home or self-care (01) ==
LOC: ER 13:11
DX: H15.102 Unspecified episcleritis, left eye (principal)
CPT/HCPCS: 99283

== ENCOUNTER 2017-09-06 08:42 | Emergency (ER) | payer MEDICAID ==
[2017-09-06 08:52] VITALS: BP 115/67
[2017-09-06] MEDS ORDERED: TETRACAINE HCL 0.5% OPH SOLN 2 ML OU ONE (09:13)
--- NOTE | 2017-09-06 09:14 | ER Document Report ---
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 He can feel it when he blinks today. Similar things have happened in the past. Associated Symptoms: None Exacerbated by: Other - Blinking Relieved by: Denies - ROS ROS below otherwise negative: Yes Systems Reviewed and Negative: Yes All other systems reviewed and negative Past Medical History - General Information source: Patient - Social History Smoking Status: Current Every Day Smoker Frequency of alcohol use: None Drug Abuse: None Lives with: Family Family History: Arthritis, DM, Thyroid Disfunction Pulmonary Medical History: Reports: Hx COPD Neurological Medical History: Reports: Hx Migraine Renal/ Medical History: Denies: Hx Peritoneal Dialysis Musculoskeltal Medical History: Reports Hx Musculoskeletal Deformity, Reports Hx Musculoskeletal Trauma Psychiatric Medical History: Reports: Hx Anxiety, Hx Depression Traumatic Medical History: Reports: Hx Fractures - Leg - Immunizations Immunizations up to date: Yes Hx Diphtheria, Pertussis, Tetanus Vaccination: Yes Vertical Provider Document - CONSTITUTIONAL Agree With Documented VS: Yes Exam Limitations: No Limitations - INFECTION CONTROL TRAVEL OUTSIDE OF THE [place] IN LAST 30 DAYS: No - HEENT HEENT: PERRLA. negative: Conjuctival Injection Notes: Embedded foreign body left cornea, centrally. Course - Re-evaluation Re-evalutation: 09/06/17 09:59 Unable to get the embedded foreign body out with a 18-gauge needle or Q-tip. 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 Put Besivance and ketorolac drop in the left eye with instructions. Dr. simms willing to see him and he has an appointment at 1030 - Vital Signs Vital signs: Temp Pulse Resp BP Pulse Ox 97.7 F 59 L 16 115/67 98 09/06/17 08:49 09/06/17 08:49 09/06/17 08:49 09/06/17 08:49 09/06/17 08:49 Discharge - Discharge Clinical Impression: embedded FB left eye Condition: Good Disposition: HOME, SELF-CARE Instructions: Ketorolac Tromethamine Eye Drops ([facility]), Conjunctival Foreign Body ([facility]), Eyedrop Use ([facility]) Additional Instructions: see the eye doctor today for removal dr villarreal at 10:30am besivance antibiotic drop 1 every 8 hours ketorolac eye drop for pain 1 drop every 8 hours Referrals: LEOPOLDO VILLARREAL MD [ACTIVE STAFF] - 09/06/17 (10:30)
[2017-09-06] MEDS ORDERED: KETOROLAC TROMETHAMINE 0.45% 4 DROP/0.4 ML DROPERETTE OS ONE (09:56)
[2017-09-06] MEDS ORDERED: BESIFLOXACIN HCL 0.6% OPH SUSP 5 ML BOTTLE OS ONE (09:58)
== END 2017-09-06 10:11 | disposition home or self-care (01) ==
LOC: ER 08:42
DX: T15.92XA Foreign body on external eye, part unspecified, left eye, initial encounter (principal); X58.XXXA Exposure to other specified factors, initial encounter; Y93.H3 Activity, building and construction; Y92.008 Other place in unspecified non-institutional (private) residence as the place of occurrence of the external cause; F17.200 Nicotine dependence, unspecified, uncomplicated; J44.9 Chronic obstructive pulmonary disease, unspecified
CPT/HCPCS: 99283; J3490 ×2

== ENCOUNTER 2017-11-05 00:28 | Emergency (ER) | payer MEDICAID ==
[2017-11-05] MEDS ORDERED: LIDOCAINE 1%/EPINEPHRINE INJ 20 ML VIAL ONE (00:44)
[2017-11-05] MEDS ORDERED: DIPH/PERTUSS(ACELL)/TETANUS VAC/PF 0.5 ML SYR (>=10YO) IM ONE ×2 (00:46→00:47)
[2017-11-05] MEDS ORDERED: CEFAZOLIN 2 GM/D5W RTU 2 GM/50 ML RTUPB IV ONE ×2 (00:46→00:47)
[2017-11-05] MEDS ORDERED: FENTANYL CITRATE INJ/PF 100 MCG/2 ML AMPUL IV PRN (00:47)
[2017-11-05] MEDS ORDERED: LIDOCAINE 1%/EPINEPHRINE INJ 20 ML VIAL INJ ONE (00:47)
[2017-11-05] MEDS ORDERED: FENTANYL CITRATE INJ/PF 100 MCG/2 ML AMPUL ONE (00:48)
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
[2017-11-05 01:16] LABS: ABSOLUTE BASOPHILS # (AUTO) 0.1 10^3/uL (0.0-0.2); ABSOLUTE EOSINOPHILS # (AUTO) 0.1 10^3/uL (0.0-0.6); ABSOLUTE LYMPHOCYTES (AUTO) 1.8 10^3/uL (0.5-4.7); ABSOLUTE MONOCYTES (AUTO) 0.4 10^3/uL (0.1-1.4); ABSOLUTE NEUT (AUTO) 3.7 10^3/uL (1.7-8.2); BASOPHILS % (AUTO) 0.8 % (0-2); EOSINOPHILS % (AUTO) 2.2 % (0-6); HEMATOCRIT 37.7 % (37.9-51.0); HEMOGLOBIN 13.2 g/dL (13.5-17.0); LYMPHOCYTES % (AUTO) 29.4 % (13-45); MEAN CORPUSCULAR HEMOGLOBIN 30.5 pg (27.0-33.4); MEAN CORPUSCULAR VOLUME 87 fl (80-97); MONOCYTES % (AUTO) 6.4 % (3-13); PLATELET COUNT 370 10^3/uL (150-450); RED BLOOD COUNT 4.32 10^6/uL (4.35-5.55); RED CELL DISTRIBUTION WIDTH 14.1 % (11.5-14.0); SEGMENTED NEUTROPHILS % (AUTO) 61.2 % (42-78); TOTAL CELLS COUNTED % (AUTO) 100 %
[2017-11-05] MEDS ORDERED: HYDROMORPHONE HCL INJ/PF 2 MG/ML AMPULE ONE (01:23)
[2017-11-05] MEDS: HYDROMORPHONE HCL INJ/PF 2 MG/ML AMPULE IV PRN ×2 (01:26→05:43)
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
[2017-11-05 03:10] LABS: ALANINE AMINOTRANSFERASE 89 U/L (21-72); ALBUMIN 4.2 g/dL (3.5-5.0); ALCOHOL 80 mg/dL (NONE DETECTED); ALKALINE PHOSPHATASE 80 U/L (38-126); ANION GAP 16 (5-19); ASPARTATE AMINO TRANSFERASE 54 U/L (17-59); BILIRUBIN,DIRECT 0.3 mg/dL (0.0-0.4); BILIRUBIN,TOTAL 0.4 mg/dL (0.2-1.3); BLOOD UREA NITROGEN 17 mg/dL (7-20); CALCIUM 8.8 mg/dL (8.4-10.2); CARBON DIOXIDE 21 mmol/L (22-30); CHLORIDE 106 mmol/L (98-107); GLUCOSE 100 mg/dL (75-110); POTASSIUM 4.1 mmol/L (3.6-5.0); SODIUM 143.1 mmol/L (137-145); TOTAL PROTEIN 7.3 g/dL (6.3-8.2)
[2017-11-05] MEDS ORDERED: HYDROCODONE/ACETAMINOPHEN 5-325 MG (6 TAB/ER DISP) PO PRN (03:59)
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
[2017-11-05 05:28] VITALS: BP 110/68
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
== END 2017-11-05 05:56 | disposition home or self-care (01) ==
LOC: ER 00:28
DX: S61.511A Laceration without foreign body of right wrist, initial encounter (principal); S61.412A Laceration without foreign body of left hand, initial encounter; S01.81XA Laceration without foreign body of other part of head, initial encounter; S01.01XA Laceration without foreign body of scalp, initial encounter; M25.531 Pain in right wrist; M79.642 Pain in left hand; R51 Headache; W14.XXXA Fall from tree, initial encounter; Y93.39 Activity, other involving climbing, rappelling and jumping off; J44.9 Chronic obstructive pulmonary disease, unspecified; R00.0 Tachycardia, unspecified; R53.83 Other fatigue; R41.0 Disorientation, unspecified; Z23 Encounter for immunization
CPT/HCPCS: 12002; 96376; 99285; 90471; 96375; 96365; 86900; 86901; 36415; 86850; 80307; 85025; 80053; 71045; 73110; 73130; 70450; 71260; 72125; 74177; 90715; L0120; J3010; J1170; J0690

== ENCOUNTER 2017-12-20 12:17 | Emergency (ER) | payer MEDICAID ==
[2017-12-20] MEDS ORDERED: METHYLPREDNISOLONE INJ 125 MG/2 ML SDV IM ONE (12:48)
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
[2017-12-20 13:38] VITALS: BP 125/58
--- NOTE | 2017-12-20 13:45 | PSYCHOLOGICAL NOTE ---
Psych Note - Psych Note Psych Note: Reason for Consult: anxiety Patient is a 32-year-old male who presents to the ED complaining of exposure to poison noe and would like to speak to somebody about anxiety. Patient reports he has a long history of substance abuse and just relapsed 2 weeks ago with cocaine and alcohol. He reports that he was on a 3-4-day binge however did get in touch with [facility]. He currently has a referral put into [facility] and has an appointment to see the [facility] on Saturday. He discloses concerns about his anxiety stating that if there is a loud noise "it gets to me I have to put in earplugs and go lay down otherwise I get very upset." He disclosed that he was previously on methadone and had good results but they changed him to Subutex and since then he has " gone downhill." He disclosed he wanted to talk to somebody in behavioral health about possibly getting a prescription for just 1 he is having anxiety. Clinician discussed the importance of staying away from controlled substances because of his substance abuse history. Patient agrees that he will discuss additional medication options during his appointment with [facility]. Patient is alert and orientated to person, place, time and circumstance. Mood is euthymic with congruent affect. Patient denies suicidal and homicidal ideations. Delusions are absent behaviors congruent with an intact reality based presentation i.e. organized and linear thought process. Eye contact is maintained. Conversational speech was within normal rate, tone and prosody. Intellectual abilities appear to be within the average range. Attention and concentration were good. Insight, judgment, impulse control are good as evidenced by patient actively pursuing treatment for himself for his relapse and substance abuse. No medication recommendations at this time 292.9 (F14.99) unspecified cocaine abuse per history provided by patient 291.9 (F10.99) unspecified alcohol related disorder per history provided by patient Impression\\plan: Patient is cleared from acute psychiatric services. Patient does not meet IVC criteria per [place] GS 120 2C. Patient discloses concern about increased anxiety since his recent relapse. He already has been in touch with [facility] and has a referral put in for the [facility]. He continued to report that he has an appointment on Saturday with [facility]. Clinician conducted psychoeducation on medications and substance abuse. Patient agrees to discuss additional medication options for anxiety with his outpatient substance abuse provider this coming week. Dr. Nava was consulted and the care and management this patient; attending physician is in agreement with recommendations and disposition.
== END 2017-12-20 13:35 | disposition home or self-care (01) ==
LOC: ER 12:17
DX: L24.7 Irritant contact dermatitis due to plants, except food (principal); F41.9 Anxiety disorder, unspecified; J44.9 Chronic obstructive pulmonary disease, unspecified
CPT/HCPCS: 99284; 96372; J2930

== ENCOUNTER 2017-12-23 10:10 | Emergency (ER) | payer MEDICAID ==
[2017-12-23 10:22] VITALS: BP 124/73
--- NOTE | 2017-12-23 10:53 | ER Document Report ---
HPI - HPI Pain Level: Denies Notes: Patient is a 32-year-old male who presents to the ED for recheck of his rash that I saw him for a few days ago. Patient was given Solu-Medrol and a topical steroid at that time. Patient states that he has had continued pruritus and continued rash with minimal improvement. Patient states that he would like the prednisone pills as that seems to work better for him. He otherwise has not noticed any significantly worsening symptoms. Denies any drug allergies otherwise. Denies any headache, fever, head injury, neck pain, changes in vision/speech/mentation/hearing, URI, sore throat, chest pain, palpitations, syncope, cough, shortness of breath, wheeze, dyspnea, abdominal pain, nausea/ vomiting/diarrhea, urinary retention, dysuria, hematuria. - ROS Systems Reviewed and Negative: Yes All other systems reviewed and negative - CONSTITUTIONAL Constitutional: DENIES: Fever, Chills - EENT EENT: DENIES: Sore Throat, Ear Pain, Eye problems - NEURO Neurology: DENIES: Headache, Weakness, Vision blurred, Dizzinesss / Vertigo - CARDIOVASCULAR Cardiovascular: DENIES: Chest pain - RESPIRATORY Respiratory: DENIES: Trouble Breathing, Coughing - GASTROINTESTINAL Gastrointestinal: DENIES: Abdominal Pain, Black / Bloody Stools - URINARY Urinary: DENIES: Dysuria, Urgency, Frequency - REPRODUCTIVE Reproductive: DENIES: : - MUSCULOSKELETAL Musculoskeletal: DENIES: Extremity pain Past Medical History - Social History Smoking Status: Never Smoker Chew tobacco use (# tins/day): No Frequency of alcohol use: Occasional Drug Abuse: None Family History: Arthritis, DM, Thyroid Disfunction Patient has suicidal ideation: No Patient has homicidal ideation: No Pulmonary Medical History: Reports: Hx COPD Neurological Medical History: Reports: Hx Migraine Renal/ Medical History: Denies: Hx Peritoneal Dialysis Musculoskeletal Medical History: Reports Hx Musculoskeletal Deformity, Reports Hx Musculoskeletal Trauma Psychiatric Medical History: Reports: Hx Anxiety, Hx Depression Traumatic Medical History: Reports: Hx Fractures - Leg - Immunizations Immunizations up to date: Yes Hx Diphtheria, Pertussis, Tetanus Vaccination: Yes Vertical Provider Document - CONSTITUTIONAL Agree With Documented VS: Yes Notes: PHYSICAL EXAMINATION: GENERAL: Well-appearing, well-nourished and in no acute distress. HEAD: Atraumatic, normocephalic. EYES: Pupils equal round and reactive to light, extraocular movements intact, sclera anicteric, conjunctiva are normal. ENT: EAC clear b/l. TM's intact b/l without erythema, fluid, or perforation. Nares patent and without discharge. oropharynx clear without exudates. No tonsilar hypertrophy or erythema. Moist mucous membranes. No sinus tenderness. NECK: Normal range of motion, supple without lymphadenopathy LUNGS: Breath sounds clear to auscultation bilaterally and equal. No wheezes rales or rhonchi. HEART: Regular rate and rhythm without murmurs, rubs, gallops. ABDOMEN: Soft, nontender, nondistended abdomen. No guarding, no rebound. No masses appreciated. Normal bowel sounds present. No CVA tenderness bilaterally. Musculoskeletal: FROM to passive/active. Strength 5+/5. Extremities: No cyanosis, clubbing, or edema b/l. Peripheral pulses 2+. Capillary refill less than 3 seconds. NEUROLOGICAL: Cranial nerves grossly intact. Normal speech, normal gait. Normal sensory, motor exams PSYCH: Normal mood, normal affect. SKIN: there are several areas that are maculopapular w/o any active discharge. No fluctuance, tenderness, abscess, streaks, or purulence. Appears like a subacute contact dermatitis currently. - INFECTION CONTROL TRAVEL OUTSIDE OF THE [place] IN LAST 30 DAYS: No Course - Re-evaluation Re-evalutation: 12/23/17 10:56 Patient is an afebrile, well-hydrated, 32-year-old male who presents to the ED with a rash which I suspect to be contact dermatitis. Vitals are acceptable without any significant tachycardia, tachypnea, or hypoxia. PE is otherwise unremarkable. No further labs or imaging warranted at this time. Patient is nontoxic-appearing and is tolerating p.o. without difficulties. Low suspicion for any ACS, cellulitis, sepsis, meningitis, or other systemic emergent condition at this time. Advised patient to recheck with his PCM in 3-5 days. Return to the ED with any worsening/concerning symptoms otherwise as reviewed in discharge. Patient is in agreement. - Vital Signs Vital signs: Temp Pulse Resp BP Pulse Ox 97.4 F 58 L 16 124/73 100 12/23/17 10:20 12/23/17 10:20 12/23/17 10:20 12/23/17 10:20 12/23/17 10:20 Discharge - Discharge Clinical Impression: Rash and nonspecific skin eruption Condition: Stable Disposition: HOME, SELF-CARE Additional Instructions: Keep the skin clean Wash with soap and water Tylenol/ibuprofen if needed Triple antibiotic ointment daily Take medication as directed Monitor for any worsening symptoms Recheck with your PCM in 3-5 days Return to the ED with any worsening symptoms and/or development of fever, headache, chest pain, palpitations, syncope, shortness of breath, trouble breathing, abdominal pain, n/v/d, abscess, purulent discharge, red streaks, worsening swelling, or other worsening symptoms that are concerning to you. Prescriptions: Prednisone 20 mg PO ASDIR #18 tablet Referrals: ELIZABETH ANDERSON MD [Primary Care Provider] - Follow up as needed
== END 2017-12-23 11:10 | disposition home or self-care (01) ==
LOC: ER 10:10
DX: R21 Rash and other nonspecific skin eruption (principal); J44.9 Chronic obstructive pulmonary disease, unspecified
CPT/HCPCS: 99283